=== PATIENT | male | born 1960 | race Hispanic/Latino ===

== ENCOUNTER → 2022-07-18 | Outpatient (CLI) | payer MEDICAID ==
[~2022-07-18] VITALS: Ht 162.6 cm; Wt 112.0 kg
[~2022-07-18] MED LIST: ALPR0.5T PO; AMOX875T2 PO; CEFAZOLIN SODIUM 2 GM VIAL IV ONE; DOXY100C5 PO; FENTANYL CITRATE PF 50 MCG/1 ML 2ML VIAL ONE; LEVO100C4 PO; OXYC-31 PO; PROPOFOL 10 MG/ML 20ML VIAL IV ONE; ROCURONIUM 10MG/1ML SYR 10 MG/ML ML ONE
[2022-07-18 12:25] VITALS: BP 127/87
[2022-07-18 12:47] LABS: BASOPHILS % (AUTO) 0.7 % (0.0-5.0); EOSINOPHILS % (AUTO) 0.1 % (0.0-8.0); HEMATOCRIT 31.4 % (42-54); LYMPHOCYTES % (AUTO) 16.3 % (21.0-51.0); MEAN CORPUSCULAR HEMOGLOBIN 28.1 pg (27.0-33.0); MEAN CORPUSCULAR HGB CONC 32.2 g/dL (32.0-36.0); MEAN CORPUSCULAR VOLUME 87.2 fL (79-99); MONOCYTES % (AUTO) 7.9 % (3.0-13.0); NEUTROPHILS % (AUTO) 74.7 % (40.0-77.0); PLATELET COUNT (AUTO) 292 K/uL (130-400); RED CELL DISTRIBUTION WIDTH 13.8 % (11.0-15.5); WHITE BLOOD COUNT (AUTO) 9.6 K/uL (4.8-10.8)
[2022-07-18 13:10] LABS: CREATININE 0.8 mg/dL (0.5-1.5); POTASSIUM 3.5 mmol/L (3.5-5.1)
[2022-07-18 13:11] LABS: INR 0.95 (0.85-1.15); PROTHROMBIN TIME 10.4 SEC (9.6-11.6)
[2022-07-18 13:12] LABS: PARTIAL THROMBOPLASTIN TIME 29.1 SEC (26.3-35.5)
== END | disposition home or self-care (01) ==
LOC: DAH 10:00 → EDSTATUS 07-21 14:00
PROVIDERS: ATTEND Otolaryngology Plastic Surgery within the Head & Neck
DX: Z01.812 Encounter for preprocedural laboratory examination (principal); J39.2 Other diseases of pharynx; Z20.822 Contact with and (suspected) exposure to COVID-19
CPT/HCPCS: 36415; 80048; 85025; 85610; 85730; 86850; 86900; 86901; 86922; 87426

== ENCOUNTER 2022-07-27 23:28 | Inpatient (IN) | payer MEDICAID ==
[~2022-07-27] VITALS: Ht 165.1 cm; Wt 44.2 kg
[~2022-07-27 23:28] MED LIST changes: -CEFAZOLIN SODIUM 2 GM VIAL IV ONE; -FENTANYL CITRATE PF 50 MCG/1 ML 2ML VIAL ONE; -PROPOFOL 10 MG/ML 20ML VIAL IV ONE; -ROCURONIUM 10MG/1ML SYR 10 MG/ML ML ONE
[2022-07-28] VITALS (24 sets, daily range): BP systolic 127–184; BP diastolic 68–110
[2022-07-28] MEDS ORDERED: IPRATROPIUM/ALBUTEROL SULFATE 3 ML SOLUTION IH PRN (01:00)
[2022-07-28] MEDS ORDERED: NITROGLYCERIN 0.4 MG SL TAB SL PRN (01:30)
[2022-07-28] MEDS ORDERED: MORPHINE 2 MG SYG IVP PRN (01:30)
[2022-07-28] MEDS ORDERED: ACETAMINOPHEN 650 MG/20.3 ML UDCUP PEG PRN ×2 (01:30)
[2022-07-28] MEDS: 0.9%NACL 1000ML 1,000 ML IV SCH (01:50)
[2022-07-28 01:55] LABS: CREATININE 0.9 mg/dL (0.5-1.5); POTASSIUM 4.7 mmol/L (3.5-5.1)
[2022-07-28 02:00] LABS: APPEARANCE,URINE CLEAR (CLEAR); BILIRUBIN,URINE NEGATIVE (NEGATIVE); COLOR,URINE LIGHT-YELLOW (YELLOW); GLUCOSE, URINE (UA) NEGATIVE (NEGATIVE); INR 0.93 (0.85-1.15); KETONES,URINE NEGATIVE (NEGATIVE); LEUKOCYTE ESTERASE ,URINE NEGATIVE Leu/uL (NEGATIVE); MUCUS,URINE RARE LPF (None Seen); NITRATE,URINE NEGATIVE (NEGATIVE); OCCULT BLOOD,URINE NEGATIVE (NEGATIVE); PH,URINE 7.5 (5.0-8.0); PROTEIN,URINE NEGATIVE (NEGATIVE); PROTHROMBIN TIME 9.7 SEC (9.6-11.6); RBC,URINE 0-1 /HPF (0-1); UROBILINOGEN,URINE 0.2 mg/dL (0.2-1.0); WBC,URINE 0-1 /HPF (0-1)
[2022-07-28] MEDS ORDERED: PHARMACY COMMUNICATION MISC SCH (02:00)
[2022-07-28 02:01] LABS: PARTIAL THROMBOPLASTIN TIME 21.4 SEC (26.3-35.5)
[2022-07-28 02:08] LABS: ALBUMIN 2.7 g/dL (3.5-5.0); THYROID STIMULATING HORMONE 2.1 uIU/mL (0.36-3.74); TOTAL PROTEIN, SERUM 7.4 g/dL (6.0-8.3)
[2022-07-28 02:18] LABS: BASOPHILS % (AUTO) 0.4 % (0.0-5.0); EOSINOPHILS % (AUTO) 1.4 % (0.0-8.0); HEMATOCRIT 29.9 % (42-54); LYMPHOCYTES % (AUTO) 23.1 % (21.0-51.0); MEAN CORPUSCULAR HEMOGLOBIN 27.9 pg (27.0-33.0); MEAN CORPUSCULAR HGB CONC 31.4 g/dL (32.0-36.0); MEAN CORPUSCULAR VOLUME 88.7 fL (79-99); MONOCYTES % (AUTO) 10.6 % (3.0-13.0); NEUTROPHILS % (AUTO) 64.1 % (40.0-77.0); PLATELET COUNT (AUTO) 281 K/uL (130-400); RED BLOOD CELL COUNT(AUTO) 3.37 MIL/uL (4.50-6.20); RED CELL DISTRIBUTION WIDTH 14.3 % (11.0-15.5); WHITE BLOOD COUNT (AUTO) 8.1 K/uL (4.8-10.8)
[2022-07-28 02:51] LABS: % IRON SATURATION 8.4 % (30-44)
[2022-07-28] MEDS: IPRATROPIUM/ALBUTEROL SULFATE 3 ML SOLUTION IH SCH ×4 (02:55→22:02)
[2022-07-28] MEDS ORDERED: MORPHINE 2 MG SYG ONE (03:00)
[2022-07-28] MEDS ORDERED: HYDROMORPHONE 0.5 MG SYG (0.5MG/0.5ML) ONE (06:04)
[2022-07-28] MEDS ORDERED: HYDROMORPHONE 0.5 MG SYG (0.5MG/0.5ML) IVP SCH (06:30)
[2022-07-28] MEDS: FAMOTIDINE 20MG VIAL IV SCH ×2 (08:42→20:55)
[2022-07-28] MEDS ORDERED: LACTATED RINGERS 1000ML 1,000 ML IV ONE (09:31)
[2022-07-28] MEDS ORDERED: ROCURONIUM BROMIDE 10MG/1ML 5ML VL IV ONE (09:51)
[2022-07-28] MEDS ORDERED: PROPOFOL 10 MG/ML 20ML VIAL IV ONE (09:51)
[2022-07-28] MEDS ORDERED: SUCCINYLCHOLINE CHLORIDE 20 MG/ML 10 ML VIAL ONE (10:43)
[2022-07-28] MEDS ORDERED: CEFAZOLIN SODIUM 1 GM VIAL IVP ONE (10:45)
[2022-07-28] MEDS ORDERED: CEFAZOLIN SODIUM 1 GM VIAL ONE ×2 (10:59→11:00)
[2022-07-28] MEDS ORDERED: PHENYLEPHRINE HCL 10 MG/ML 1ML VIAL IV ONE (11:45)
[2022-07-28] MEDS ORDERED: FENTANYL CITRATE PF 50 MCG/1 ML 2ML VIAL IJ ONE (12:20)
[2022-07-28] MEDS ORDERED: DEXAMETHASONE SOD PHOSPHATE 10MG/ML 1ML VIAL ONE (12:27)
[2022-07-28] MEDS ORDERED: ONDANSETRON 4MG INJ ONE (12:28)
[2022-07-28] MEDS ORDERED: NEOSTIGMINE 5MG/5ML SYR IV ONE (13:22)
[2022-07-28] MEDS ORDERED: GLYCOPYRROLATE 1 MG/5 ML SYRINGE ONE (13:22)
[2022-07-28] MEDS ORDERED: MEPERIDINE-PF 25 MG/ML SYG ONE (14:03)
[2022-07-28] MEDS ORDERED: HYDROMORPHONE 1 MG INJ ONE (14:29)
[2022-07-28] MEDS: ONDANSETRON 4MG INJ IV PRN ×2 (14:35→14:37)
[2022-07-28] MEDS: MORPHINE 2 MG SYG IVP PRN ×2 (17:08→20:59)
[2022-07-28] MEDS ORDERED: IOHEXOL 350 MG/ML 100ML INFUS..BTL IV ONE (17:14)
[2022-07-29 00:06] VITALS: BP 107/65
[2022-07-29] MEDS: MORPHINE 2 MG SYG IVP PRN ×6 (01:21→22:38)
[2022-07-29] MEDS: IPRATROPIUM/ALBUTEROL SULFATE 3 ML SOLUTION IH SCH ×6 (02:37→21:03)
[2022-07-29 03:30] VITALS: BP 122/62
[2022-07-29 05:44] LABS: BASOPHILS % (AUTO) 0.2 % (0.0-5.0); HEMATOCRIT 28.5 % (42-54); LYMPHOCYTES % (AUTO) 12.6 % (21.0-51.0); MEAN CORPUSCULAR HEMOGLOBIN 27.9 pg (27.0-33.0); MEAN CORPUSCULAR HGB CONC 31.9 g/dL (32.0-36.0); MEAN CORPUSCULAR VOLUME 87.4 fL (79-99); MONOCYTES % (AUTO) 11.6 % (3.0-13.0); NEUTROPHILS % (AUTO) 75.4 % (40.0-77.0); PLATELET COUNT (AUTO) 272 K/uL (130-400); RED BLOOD CELL COUNT(AUTO) 3.26 MIL/uL (4.50-6.20); RED CELL DISTRIBUTION WIDTH 14.5 % (11.0-15.5); WHITE BLOOD COUNT (AUTO) 8.6 K/uL (4.8-10.8)
[2022-07-29 06:17] LABS: ALBUMIN 2.5 g/dL (3.5-5.0); POTASSIUM 3.8 mmol/L (3.5-5.1)
[2022-07-29 07:59] VITALS: BP 140/68
[2022-07-29] MEDS: FAMOTIDINE 20MG VIAL IV SCH ×2 (09:10→20:42)
[2022-07-29 11:21] VITALS: BP 126/60
[2022-07-29] MEDS: IRON SUCROSE COMPLEX 100 MG/5 ML VIAL IVP SCH (13:33)
[2022-07-29 15:36] VITALS: BP 144/72
[2022-07-29] MEDS: 0.9%NACL 1000ML 1,000 ML IV SCH ×2 (17:38→22:38)
[2022-07-29 20:00] VITALS: BP 148/78
[2022-07-29] MEDS ORDERED: ALPRAZOLAM 0.25 MG TABLET GT ONE (20:00)
[2022-07-29] MEDS: ALPRAZOLAM 0.5 MG TABLET PO SCH (20:42)
[2022-07-30] VITALS: BP 137/74
[2022-07-30] MEDS: IPRATROPIUM/ALBUTEROL SULFATE 3 ML SOLUTION IH SCH ×6 (00:51→22:38)
[2022-07-30] MEDS: MORPHINE 2 MG SYG IVP PRN ×5 (02:39→17:35)
[2022-07-30 04:00] VITALS: BP 116/54
[2022-07-30 05:48] LABS: BASOPHILS % (AUTO) 0.4 % (0.0-5.0); EOSINOPHILS % (AUTO) 0.6 % (0.0-8.0); HEMATOCRIT 27.8 % (42-54); LYMPHOCYTES % (AUTO) 13.4 % (21.0-51.0); MEAN CORPUSCULAR HEMOGLOBIN 27.8 pg (27.0-33.0); MEAN CORPUSCULAR HGB CONC 32.4 g/dL (32.0-36.0); MEAN CORPUSCULAR VOLUME 85.8 fL (79-99); MONOCYTES % (AUTO) 10.4 % (3.0-13.0); NEUTROPHILS % (AUTO) 74.6 % (40.0-77.0); PLATELET COUNT (AUTO) 294 K/uL (130-400); RED BLOOD CELL COUNT(AUTO) 3.24 MIL/uL (4.50-6.20); RED CELL DISTRIBUTION WIDTH 14.3 % (11.0-15.5); WHITE BLOOD COUNT (AUTO) 7.1 K/uL (4.8-10.8)
[2022-07-30 06:02] LABS: ALBUMIN 2.6 g/dL (3.5-5.0); CREATININE 0.7 mg/dL (0.5-1.5); POTASSIUM 3.5 mmol/L (3.5-5.1); TOTAL PROTEIN, SERUM 6.9 g/dL (6.0-8.3)
[2022-07-30 07:19] VITALS: BP 127/68
[2022-07-30] MEDS ORDERED: IRON SUCROSE COMPLEX 100 MG in 0.9%NACL 50ML 50 ML IV SCH (09:00)
[2022-07-30] MEDS: FAMOTIDINE 20MG VIAL IV SCH ×2 (09:47→21:49)
[2022-07-30] MEDS: ALPRAZOLAM 0.5 MG TABLET PO SCH ×2 (09:47→21:49)
[2022-07-30] MEDS ORDERED: SODIUM CHLORIDE 1,000 MG TAB PO SCH (11:30)
[2022-07-30 11:43] VITALS: BP 137/76
[2022-07-30] MEDS: IRON SUCROSE COMPLEX 100 MG/5 ML VIAL IVP SCH (14:02)
[2022-07-30 15:47] VITALS: BP 122/62
[2022-07-30 20:00] VITALS: BP 149/75
[2022-07-31] VITALS (7 sets, daily range): BP systolic 127–174; BP diastolic 63–88
[2022-07-31] MEDS ORDERED: MORPHINE 2 MG SYG IVP PRN
[2022-07-31] MEDS ORDERED: MORPHINE 20MG/ML SOLN 0.25ML PO ONE
[2022-07-31] MEDS ORDERED: MORPHINE 2 MG SYG ONE (00:02)
[2022-07-31] MEDS: IPRATROPIUM/ALBUTEROL SULFATE 3 ML SOLUTION IH SCH ×6 (02:00→21:39)
[2022-07-31] MEDS: ALPRAZOLAM 0.5 MG TABLET PO SCH ×2 (09:00→20:33)
[2022-07-31] MEDS: FAMOTIDINE 20MG VIAL IV SCH ×2 (09:21→20:30)
[2022-07-31] MEDS: OXYCODONE HCL 5 MG TAB PO PRN ×3 (09:22→21:07)
[2022-07-31] MEDS: ACETAMINOPHEN 650 MG/20.3 ML UDCUP PEG PRN ×3 (09:25→21:11)
[2022-07-31] MEDS: IRON SUCROSE COMPLEX 100 MG/5 ML VIAL IVP SCH (13:33)
[2022-08-01] VITALS: BP 138/76
[2022-08-01] MEDS: ACETAMINOPHEN 650 MG/20.3 ML UDCUP PEG PRN ×4 (02:31→17:16)
[2022-08-01] MEDS: OXYCODONE HCL 5 MG TAB PO PRN ×4 (02:31→17:16)
[2022-08-01] MEDS: IPRATROPIUM/ALBUTEROL SULFATE 3 ML SOLUTION IH SCH ×4 (02:43→18:14)
[2022-08-01 04:00] VITALS: BP 137/77
[2022-08-01] MEDS: FAMOTIDINE 20MG VIAL IV SCH (07:58)
[2022-08-01 08:00] VITALS: BP 153/83
[2022-08-01] MEDS: ALPRAZOLAM 0.5 MG TABLET PO SCH (09:00)
[2022-08-01 12:00] VITALS: BP 143/81
[2022-08-01] MEDS: IRON SUCROSE COMPLEX 100 MG/5 ML VIAL IVP SCH (15:25)
[2022-08-01 16:00] VITALS: BP 145/77
[2022-08-01 20:20] VITALS: BP 134/73
[2022-08-01] MEDS ORDERED: KCL 20 MEQ ERTAB PO PRN (20:30)
[2022-08-01] MEDS ORDERED: LIDOCAINE HCL-MPF 1% 2ML VIAL IV PRN (20:30)
[2022-08-01] MEDS ORDERED: POTASSIUM CHLORIDE 10% ELIXIR 20 MEQ/15 ML UDCUP PO PRN (20:30)
[2022-08-01] MEDS ORDERED: POTASSIUM CHLORIDE 20MEQ/100ML 100 ML IV PRN (20:30)
== END 2022-08-01 20:55 | disposition home or self-care (01) | DRG 793 ==
LOC: EDH 23:28 → EDHIP 23:29 → 3DH 07-28 03:44
PROVIDERS: ADMIT Hospitalist; ATTEND Hospitalist
PROC: 0CH Mouth and Throat, Insertion (ICD-10-PCS; 2022-07-28)
PROC: 0CJ Mouth and Throat, Inspection (ICD-10-PCS; 2022-07-28)
PROC: 0CBM0ZZ Excision of Pharynx, Open Approach (ICD-10-PCS; 2022-07-28)
PROC: 0CJS8ZZ Inspection of Larynx, Via Natural or Artificial Opening Endoscopic (ICD-10-PCS; principal; 2022-07-28 11:12)
DX: T81.83XA Persistent postprocedural fistula, initial encounter (principal); E43 Unspecified severe protein-calorie malnutrition; T81.40XA Infection following a procedure, unspecified, initial encounter; E87.1 Hypo-osmolality and hyponatremia; Z20.822 Contact with and (suspected) exposure to COVID-19; E03.9 Hypothyroidism, unspecified; D64.9 Anemia, unspecified; F41.9 Anxiety disorder, unspecified; J44.9 Chronic obstructive pulmonary disease, unspecified; Z85.21 Personal history of malignant neoplasm of larynx; Z51.5 Encounter for palliative care; Z87.891 Personal history of nicotine dependence; Z85.89 Personal history of malignant neoplasm of other organs and systems; Z85.819 Personal history of malignant neoplasm of unspecified site of lip, oral cavity, and pharynx; Y83.8 Other surgical procedures as the cause of abnormal reaction of the patient, or of later complication, without mention of misadventure at the time of the procedure; Y92.89 Other specified places as the place of occurrence of the external cause; Z68.1 Body mass index [BMI] 19.9 or less, adult; J39.2 Other diseases of pharynx
CPT/HCPCS: 36415; 70491; 71045; 71270; 80053; 81001; 82728; 82948; 83540; 83550; 84443; 85025; 85610; 85730; 87040; 87070; 87076; 87077; 87186; 87635; 93005; 94640; 94664; C9803; G0378; J0330; J0690; J1100; J1170; J1756; J2175; J2370; J2405; J2704; J2710; J3010; J3490; J7030; J7120; Q9967